=== PATIENT | female | born 1970 | race Caucasian/White ===

== ENCOUNTER 2019-12-20 16:24 | Emergency (ER) | payer OTHER, SELFPAY ==
[2019-12-20 17:16] VITALS: BP 164/94; PULSE 67; RESP 20; TEMP 36.9; O2SAT 98; BMI 31.9
--- NOTE | 2019-12-20 17:33 | ED_ITS ---
Entered by Audra Farmer, acting as scribe for Ousmane Dow MD, [facility] [place] Dec 20, 2019 16:24 HPI - Headache General: Chief Complaint: Headache Stated Complaint: HEADACHE Time Seen by Provider: 12/20/19 17:32 History of Present Illness: HPI Narrative: 49 yo female presents to ED wt complaints of a massive headache . She said the pain is in her bilateral temples and it beats with every heartbeat. She said it began 3 hours ago. She said she has never had migraines. She denies being dizzy or lightheaded but has had a couple episodes of nausea. She said she had been squatting down to remove stitches from patient's hand and when she stood back up her low back was pulling, which was new for her also. MD elicited complaint: migraine Onset (ago): hour(s) (3) Time: 15:30 Onset description: suddenly Location: temporal (bilateral) Severity: severe Quality & Timing: pulsatile and sharp Exacerbating factors: none Relieving factors: nothing Context: occurred with exertion/activity Associated symptoms: Reports chest pain and nausea; Deny fever(s) or rash Treatments prior to arrival: none Review of Systems General: Reports: 10 or more systems reviewed and unremarkable except in HPI and below Const: Denies: fever, chills or body aches Eyes: Reports: blind spots; Denies: change in vision or blurry vision ENMT: Denies: throat pain, enlarged tonsils, painful swallowing, hoarseness, mouth pain or swelling of lips/tongue Card: Reports: chest pain; Denies: palpitations, irregular heart rhythm, edema or swelling of feet/ankles Resp: Denies: shortness of breath, productive cough or non-productive cough GI: Reports: nausea : Denies: flank pain, difficulty urinating, painful urination, urinary frequency, urinary urgency or urinary hesitancy Musc: Reports: extremity pain (left shoulder), joint pain (left shoulder) and limited range of motion; Denies: neck pain, back pain or extremity swelling Skin/Breast: Denies: rash, itching or redness Neuro: Denies: numbness in extremities or weakness in extremities Endo: Denies: excessive urination, excessive thirst or tired all the time PFSH ED PFSH: Statuses (acute, chronic, etc) shown below reflect problem list status as previously entered and may not be historically accurate Social History Smoking and tobacco status: former smoker Physical Exam Const: COMMON NORMALS: no apparent distress, average body habitus, oriented x3, no limitations, healthy appearing, alert and well nourished HENMT: COMMON NORMALS: normocephalic, head/scalp atraumatic and moist oral mucous membranes HEAD & SCALP: normocephalic and atraumatic Eye: COMMON NORMALS: PERRL, EOMs intact bilaterally, conjunctivae normal and no scleral icterus CONJUNCTIVA: Yes conjunctivae normal PUPIL: Yes PERRL Neck/C-Spine: COMMON NORMALS: full ROM, supple, no meningeal signs, no JVD and no carotid bruits Chest: COMMONS NORMALS: inspection of chest normal and palpation of chest normal Resp: COMMON NORMALS: normal respiratory effort, no retractions, no use of accessory muscles, clear to auscultation bilaterally and percussion normal AUSCULTATION: clear to auscultation bilaterally PERCUSSION: percussion normal Cardio: COMMON NORMALS: no JVD, regular rate, regular rhythm, S1 normal heart sound, S2 normal heart sound, no gallops, no clicks, no murmurs, no rub and peripheral pulses 2+ throughout RATE: regular rate RHYTHM: regular rhythm HEART SOUNDS: S1 normal and S2 normal PERIPHERAL PULSES: pulses 2+ throughout GI: COMMON NORMALS: normal to inspection, nondistended, normoactive bowel sounds, soft to palpation, non-tender, no hepatosplenomegaly, no masses and no bruits PALPATION: Yes soft and Yes no hepatosplenomegaly : COMMON NORMALS: Yes no CVA tenderness BLADDER/KIDNEY EXAM: Yes no CVA tenderness Back/Pelvis: COMMON NORMALS: no CVA tenderness Extremity: COMMON NORMALS: normal to inspection, full ROM, normal capillary refill, no calf tenderness and no pedal edema Neuro: COMMON NORMALS: oriented x3 SENSORIUM/ORIENTATION: Yes alert MENINGEAL SIGNS: Yes no meningeal signs Skin: COMMON NORMALS: no rashes or lesions noted, no wounds, skin turgor normal, no jaundice, no petechiae and no mottling GENERAL SKIN EXAM: no rashes or lesions noted and turgor normal Course Reevaluation(s): Reevaluation #1: Discussed her labs and imaging findings with her. Headache resolved spontaneously prior to receive any medications. She feels fine and wants to be discharged home. She will be discharged with no new orders. Time: 19:50 Vital Signs: Vital signs: Vital Signs Temperature 98.5 F 12/20/19 17:16 Pulse Rate 67 12/20/19 17:16 Respiratory Rate 20 H 12/20/19 17:16 Blood Pressure 164/94 12/20/19 17:16 Pulse Oximetry 98 12/20/19 17:16 MDM - Headache MDM Narrative: Medical decision making narrative: Patient who presented with the worst headache of her life Head CT negative. Headache resolved spontaneously. She is discharged home with no new orders. Medical Records: Attestation: I reviewed the patient's medical records. Lab Data: Attestation: I reviewed the patient's lab results. Labs: Lab Results 12/20/19 12/20/19 12/20/19 Range/Units 17:51 17:51 18:50 WBC 7.5 (4.0-10.0) 10^3/ uL RBC 4.58 (4.1-5.3) 10^6/u L Hgb 13.9 (11.5-15.3) g/dL Hct 42.6 (37.0-47.0) % MCV 93.0 (81-99) fL MCH 30.3 (28.0-34.0) pg MCHC 32.6 (30.0-36.0) g/dL RDW 12.4 (12.1-15.1) % Plt Count 254 (130-400) 10^3/c mm MPV 9.4 (7.4-10.4) fL Neut % (Auto) 56.6 % Lymph % (Auto) 32.9 % [place] % (Auto) 6.5 % Eos % (Auto) 3.1 % Baso % (Auto) 0.8 % Neut # (Auto) 4.3 (1.8-7.7) 10^3/u L Lymph # (Auto) 2.5 (0.8-4.8) 10^3/u L [place] # (Auto) 0.5 (0.2-0.9) 10^3/u L Eos # (Auto) 0.2 (0.0-0.8) 10^3/u L Baso # (Auto) 0.1 (0.0-0.1) 10^3/u L Nucleated RBC % (a uto) 0 % Nucleated RBCs # 0.0 /100WBC Sodium 138 (136-145) mmol/L Potassium 4.1 (3.5-5.1) mmol/L Chloride 106 (98-107) mmol/L Carbon Dioxide 21 L (22-29) mmol/L Anion Gap 15.1 (5-19) BUN 9 (6-20) mg/dL Creatinine 1.1 H (0.5-0.9) mg/dL GFR Calculation 52.4 L (90-130) mL/min Glucose 116 H (74-109) mg/dL Calcium 10.0 (8.5-10.5) mg/dL Total Bilirubin 0.3 (0.15-1.2) mg/dL AST 19 (0-32) U/L ALT 20 (0-33) U/L Alkaline Phosphata se 73 (35-105) IU/L Total Protein 7.6 (6.6-8.7) g/dL Albumin 4.5 (3.5-5.2) g/dL Globulin 3.1 (1.3-4.6) g/dL Influenza Type A A g Negative (Negative) POC Influenza B Ag Negative (Negative) Imaging Data^: CT Head: Radiologist's impression: [place] [address] CT Scan Report Signed Patient: Meghana Rahman #: [id number] : 1970Acct#:[id number] Age/Sex: 49 / FADM Date: 12/20/19 Loc: [facility]/Bed: Attending Dr: Ordering Provider/Ordering MD: Ousmane Dow MD, [facility] [place] Date of Service: 12/20/19 Procedure(s): CT head wo con* [id number] Accession Number(s): [id number] Report Number: [id number] PROCEDURE INFORMATION: Exam: CT Head Without Contrast Exam date and time: 12/20/2019 5:46 PM Age: 49 years old Clinical indication: Pain; Headache not specified; Additional info: Worst headache of her life TECHNIQUE: Imaging protocol: Computed tomography of the head without contrast. Total DLP: 776.92 mGy-cm Radiation optimization: All CT scans at this facility use at least one of these dose optimization techniques: automated exposure control; mA and/or kV adjustment per patient size (includes targeted exams where dose is matched to clinical indication); or iterative reconstruction. COMPARISON: No relevant prior studies available. FINDINGS: Brain: Normal. No hemorrhage. Unremarkable white matter. No mass effect. Ventricles: Normal. No ventriculomegaly. Bones/joints: Unremarkable. No acute fracture. Sinuses: Visualized sinuses are unremarkable. No fluid levels. Mastoid air cells: Visualized mastoid air cells are well aerated. Soft tissues: Unremarkable. CT/CT head wo con* [id number] IMPRESSION: No acute intracranial abnormality. Radiation Dose CTDIVOL = (mGy): DLP = 776.92 (mGy-cm) Dictated By:Champ Faulkner Signed By:Errol Faulkner Discharge Plan Discharge Patient Disposition: Home, Self-Care Clinical Impression: Migraine Qualifiers: Migraine type: without aura Status migrainosus presence: without status migrainosus Intractability: not intractable Qualified Code(s): G43.009 - Migraine without aura, not intractable, without status migrainosus Condition: Stable Discharge Orders: Discharge Order (Routine); Ordered 12/20/19 Ordered By: Ousmane Dow Discharge Diet: Usual diet Discharge Activity: Resume usual activity Patient Instructions: Headache - Migraine (Adult) Activity Restrictions/Additional Instructions: Return for any new or worsening symptoms. Follow-up with your primary care provider within 1 week. Drink lots of fluids to keep well-hydrated. Coding Level of Care Code ED Stogy Maker for Chg Fwd The documentation recorded by the Darian estrada Valerie R, accurately reflects the service I personally performed and the decisions made by Victor M newell Adegoke I, MD, [facility] [place] Dec 20, 2019 16:24
--- NOTE | 2019-12-20 17:40 | CTR_ITS ---
PROCEDURE INFORMATION: Exam: CT Head Without Contrast Exam date and time: 12/20/2019 5:46 PM Age: 49 years old Clinical indication: Pain; Headache not specified; Additional info: Worst headache of her life TECHNIQUE: Imaging protocol: Computed tomography of the head without contrast. Total DLP: 776.92 mGy-cm Radiation optimization: All CT scans at this facility use at least one of these dose optimization techniques: automated exposure control; mA and/or kV adjustment per patient size (includes targeted exams where dose is matched to clinical indication); or iterative reconstruction. COMPARISON: No relevant prior studies available. FINDINGS: Brain: Normal. No hemorrhage. Unremarkable white matter. No mass effect. Ventricles: Normal. No ventriculomegaly. Bones/joints: Unremarkable. No acute fracture. Sinuses: Visualized sinuses are unremarkable. No fluid levels. Mastoid air cells: Visualized mastoid air cells are well aerated. Soft tissues: Unremarkable. CT/CT head wo con* [id number] IMPRESSION: No acute intracranial abnormality. Radiation Dose CTDIVOL = (mGy): DLP = 776.92 (mGy-cm)
[2019-12-20 17:57] LABS: Basophils # 0.1 10^3/uL (0.0-0.1); Basophils % 0.8 %; Eosinophils # 0.2 10^3/uL (0.0-0.8); Eosinophils % 3.1 %; Hematocrit 42.6 % (37.0-47.0); Hemoglobin 13.9 g/dL (11.5-15.3); Lymphocytes # 2.5 10^3/uL (0.8-4.8); Lymphocytes % 32.9 %; Mean Corpuscular HGB Conc 32.6 g/dL (30.0-36.0); Mean Corpuscular Hemoglobin 30.3 pg (28.0-34.0); Mean Platelet Volume 9.4 fL (7.4-10.4); Monocytes # 0.5 10^3/uL (0.2-0.9); Monocytes % 6.5 %; Neutrophils # 4.3 10^3/uL (1.8-7.7); Neutrophils % 56.6 %; Nucleated Red Blood Cells % 0 %; Platelet Count 254 10^3/cmm (130-400); Red Blood Count 4.58 10^6/uL (4.1-5.3); Red Cell Distribution Width 12.4 % (12.1-15.1); White Blood Count 7.5 10^3/uL (4.0-10.0)
[2019-12-20 18:45] LABS: Alanine Aminotransferase 20 U/L (0-33); Albumin Level 4.5 g/dL (3.5-5.2); Alkaline Phosphatase 73 IU/L (35-105); Anion Gap 15.1 (5-19); Aspartate Amino Transferase 19 U/L (0-32); Blood Urea Nitrogen 9 mg/dL (6-20); Carbon Dioxide 21 mmol/L (22-29); Chloride 106 mmol/L (98-107); Creatinine Clr Calc Pharmacy 70.6575; Globulin 3.1 g/dL (1.3-4.6); Glomerular Filtration Rate 52.4 mL/min (90-130); Glucose 116 mg/dL (74-109); Potassium 4.1 mmol/L (3.5-5.1); Sodium 138 mmol/L (136-145); Total Bilirubin 0.3 mg/dL (0.15-1.2); Total Protein 7.6 g/dL (6.6-8.7)
[2019-12-20 19:44] LABS: Influenza A by IFA Negative (Negative); Influenza B by IFA Negative (Negative)
--- NOTE | 2019-12-20 19:47 | PC.NURSE ---
Went into patients room to give medications that are ordered. patient states that she is no longer having a headache at this time. patients state that she has not had a headache for the last 50 min. patient states that she would like to know the CT results and then would like to go home. patient is not wanting medications at this time. ed physician and primary nurse notified.
[2019-12-20 20:27] VITALS: BP 134/87; PULSE 66; RESP 17; O2SAT 98
== END 2019-12-20 20:28 | disposition home or self-care (01) ==
PROVIDERS: Emergency Provider Family Medicine
DX: G43.009 Migraine without aura, not intractable, without status migrainosus (principal); Z87.891 Personal history of nicotine dependence
CPT/HCPCS: 70450; 80053; 85025; 87804; 99282; 99284

== ENCOUNTER 2019-12-28 07:19 | Outpatient (REF) | payer OTHER, SELFPAY ==
[2019-12-28 11:34] LABS: Chol HDL Ratio 6.53 mg/dL (0.0-4.40); Cholesterol 196 mg/dL (0-200); Glucose 104 mg/dL (65-115); HDL Cholesterol 30 mg/dL (60-100); LDL Cholesterol Calculated 140 mg/dL (50-129); LDL HDL Ratio 4.67 RATIO (0.00-3.22); Triglycerides 128 mg/dL (0-150)
[2019-12-28 11:55] LABS: Estmated Average Glucose 131; Hemoglobin A1C 6.2 % (4.0-6.0)
== END 2019-12-28 07:20 | disposition home or self-care (01) ==
LOC: LAB 07:19
PROVIDERS: Visit Provider Dermatology
DX: Z01.89 Encounter for other specified special examinations (principal)
CPT/HCPCS: 80061; 82947; 83036

== ENCOUNTER → 2020-01-10 08:34 | Outpatient (BNVA) | payer OTHER, SELFPAY | PROVIDERS: Visit Provider Nurse Practitioner Women's Health | DX: R30.9 Painful micturition, unspecified (principal); Z12.39 Encounter for other screening for malignant neoplasm of breast; R35.0 Frequency of micturition; Z01.419 Encounter for gynecological examination (general) (routine) without abnormal findings; Z30.42 Encounter for surveillance of injectable contraceptive; N95.1 Menopausal and female climacteric states | CPT/HCPCS: 81003; 87086 ==

== ENCOUNTER 2020-04-04 10:10 | Outpatient (CLI) | payer OTHER, SELFPAY ==
--- NOTE | 2020-04-04 10:30 | MM_ITS ---
WS: [id number] BILATERAL DIGITAL SCREENING MAMMOGRAPHY WITH CAD CLINICAL INFORMATION: screening HISTORY: Screening mammogram. No current complaints. COMPARISON: May 21, 2016 TECHNIQUE: Bilateral CC and MLO views. FINDINGS: Scattered fibroglandular densities bilaterally. No suspicious focal mass, asymmetry, calcifications, or architectural distortion. No evidence of malignancy. MM/[place] [id number] IMPRESSION: BI-RADS: 1-Negative FOLLOW UP: 1 Year Follow-up Recommend return to annual screening mammography.
== END 2020-04-04 10:11 | disposition home or self-care (01) ==
LOC: RADSHAW 10:10
PROVIDERS: Visit Provider Nurse Practitioner Women's Health
DX: Z12.31 Encounter for screening mammogram for malignant neoplasm of breast (principal)
CPT/HCPCS: 77067

== ENCOUNTER 2021-11-23 10:39 | Outpatient (CLI) | payer OTHER, SELFPAY ==
--- NOTE | 2021-11-23 10:51 | XR_ITS ---
WS: [id number] PROCEDURE: XR chest 2V* [id number] CLINICAL INFORMATION: cough and Hx of smoking COMPARISON: 2017 FINDINGS: Heart: Normal cardiac silhouette. Lungs: Lungs are clear. No consolidation or pleural fluid. No acute pulmonary infiltrates. Bones: Normal visualized bony structures. XR/XR chest 2V* [id number] IMPRESSION: Normal chest.
== END 2021-11-23 10:40 | disposition home or self-care (01) ==
PROVIDERS: PCP Family Medicine Adult Medicine; Visit Provider Family Medicine Adult Medicine
DX: R05.9 Cough, unspecified (principal); Z87.891 Personal history of nicotine dependence
CPT/HCPCS: 71046

== ENCOUNTER → 2022-01-26 15:52 | Outpatient (BNVA) | payer OTHER, SELFPAY | PROVIDERS: PCP Family Medicine Adult Medicine; Visit Provider Nurse Practitioner Women's Health | DX: Z01.419 Encounter for gynecological examination (general) (routine) without abnormal findings (principal) | CPT/HCPCS: 87624 ==

== ENCOUNTER → 2023-03-08 13:00 | Outpatient (BNVA) | payer OTHER, SELFPAY | PROVIDERS: PCP Family Medicine Adult Medicine; Visit Provider Nurse Practitioner Women's Health | DX: N91.2 Amenorrhea, unspecified (principal) | CPT/HCPCS: 82670; 83001 ==

== ENCOUNTER → 2023-08-09 08:49 | Outpatient (BNVA) | payer OTHER, SELFPAY | PROVIDERS: PCP Family Medicine Adult Medicine; Visit Provider Family Medicine Adult Medicine | DX: I10 Essential (primary) hypertension (principal); R73.03 Prediabetes; G25.0 Essential tremor; R41.3 Other amnesia; E78.5 Hyperlipidemia, unspecified; R94.4 Abnormal results of kidney function studies | CPT/HCPCS: 80053; 80061; 83036; 84443; 85025 ==

== ENCOUNTER → 2023-09-28 10:15 | Outpatient (BNVA) | payer OTHER, SELFPAY | PROVIDERS: PCP Family Medicine Adult Medicine; Visit Provider Psychiatry & Neurology Neurology | DX: R41.3 Other amnesia (principal); G25.0 Essential tremor; F03.90 Unspecified dementia, unspecified severity, without behavioral disturbance, psychotic disturbance, mood disturbance, and anxiety; R51.9 Headache, unspecified; G31.84 Mild cognitive impairment of uncertain or unknown etiology; G44.53 Primary thunderclap headache | CPT/HCPCS: 0346U; 36415; 82306; 82542; 82607; 83735; 83921; 86592; 86780 ==

== ENCOUNTER 2024-02-15 07:41 | Outpatient (CLI) | payer OTHER, SELFPAY ==
--- NOTE | 2024-02-15 08:00 | MM_ITS ---
WS: [id number] VIEWS: MLO and CC views both breasts. 3D digital tomosynthesis is also included in this exam. Comparison made with prior exam of 03/11/2010, 03/08/2014, 05/16/2015, 05/21/2016, 04/04/2020,. Findings: There was no sign of mass, architectural distortion or suspicious calcification in either breast. The re are scattered areas of fibroglandular density Impression: MM/[place] [id number] BI-RADS: 1-Negative FOLLOW-UP: 1 Year Follow-up This mammogram was also analyzed by the Computer Aided Detection System R2 Imag e Front Desk Person.
== END 2024-02-15 07:42 | disposition home or self-care (01) ==
LOC: RAD 07:42
PROVIDERS: PCP Family Medicine Adult Medicine; Visit Provider Nurse Practitioner Women's Health
DX: Z12.31 Encounter for screening mammogram for malignant neoplasm of breast (principal)
CPT/HCPCS: 77063; 77067

== ENCOUNTER → 2024-03-15 16:15 | Outpatient (BNVA) | payer OTHER, SELFPAY | PROVIDERS: PCP Family Medicine Adult Medicine; Visit Provider Nurse Practitioner Women's Health | DX: Z83.2 Family history of diseases of the blood and blood-forming organs and certain disorders involving the immune mechanism (principal); Z79.899 Other long term (current) drug therapy | CPT/HCPCS: 81241 ==

== ENCOUNTER → 2024-11-07 11:43 | Outpatient (BNVA) | payer OTHER, SELFPAY | PROVIDERS: PCP Family Medicine Adult Medicine; Visit Provider Nurse Practitioner Women's Health | DX: I49.8 Other specified cardiac arrhythmias (principal); R53.83 Other fatigue; Z78.0 Asymptomatic menopausal state; Z79.899 Other long term (current) drug therapy | CPT/HCPCS: 80053; 80061; 82306; 82728; 82746; 83036; 84439; 84443; 85025 ==

== ENCOUNTER → 2024-11-12 16:37 | Outpatient (BNVA) | payer OTHER, SELFPAY | PROVIDERS: PCP Family Medicine Adult Medicine; Visit Provider Internal Medicine Cardiovascular Disease | DX: I49.8 Other specified cardiac arrhythmias (principal); I21.29 ST elevation (STEMI) myocardial infarction involving other sites | CPT/HCPCS: 93005 ==

== ENCOUNTER → 2025-04-18 16:05 | Outpatient (BNVA) | payer OTHER, SELFPAY | PROVIDERS: PCP Family Medicine Adult Medicine; Visit Provider Nurse Practitioner Women's Health | DX: N85.00 Endometrial hyperplasia, unspecified (principal); N95.0 Postmenopausal bleeding | CPT/HCPCS: 76830 ==